=== PATIENT | male | born 1940 | race Caucasian/White ===

== ENCOUNTER 2017-10-10 09:15 | Outpatient (CLI) | payer MEDICARE ==
[~2017-10-10 09:15] MED LIST: Gadobenate Dimeglumine 529 MG/1 ML (20ML VIAL) ONE
--- NOTE | 2017-10-10 11:04 | MRI ---
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 COMPARISON: None. TECHNIQUE: Brain MRI is performed without intravenous and with intravenous Gadolinium administration. Multiseque ntial, multiplanar imaging is performed. FINDINGS: No hemorrhage on the axial gradient echo sequence. Calvarium has a normal marrow signal intensity. Mi dline brain parenchymal structures are unremarkable. No parenchymal mass, mass effect, or midline michelle ft. Age-appropriate atrophy. Cortical magana-white matter differentiation is preserved. There are T2 an d FLAIR white matter hyperintensities, minimal. Distribution favors chronic small vessel ischemic devin nges. Central arterial flow-voids are maintained. Absent restricted diffusion. Adequate aeration of t he sinuses and mastoid air cells. No pathologic enhancement of the brain parenchyma. IMPRESSION: 1. Absent restricted diffusion. No acute infarction. 2. Age-appropriate atrophy. Cortical magana-white matter differentiation is preserved. 3. Minimal chronic small vessel ischemic changes of white matter. POS: [facility] [place]
== END 2017-10-10 09:16 | disposition home or self-care (01) ==
LOC: SCSMRI 09:15
PROVIDERS: ATTEND Psychiatry & Neurology Neurology
DX: G31.1 Senile degeneration of brain, not elsewhere classified (principal); G31.9 Degenerative disease of nervous system, unspecified
CPT/HCPCS: 70553

== ENCOUNTER 2018-04-23 11:54 | Outpatient (CLI) | payer MEDICARE ==
--- NOTE | 2018-04-23 15:36 | PET ---
PET SCAN DEMENTIA PET BRAIN NONCONTRAST HEAD CT: INDICATION: Senile degeneration of the brain. RADIOPHARMACEUTICAL: 8.5 mCi fluorine 18-FDG IV. FINDINGS: There is symmetric mild reduced metabolic activity of each parietal lobe. Noncontrast head CT reveals mild parenchymal atrophy with compensatory dilatation of the ventricular system. No acute mass effect or midline shift. IMPRESSION: 1. Mild decreased metabolic activity of each parietal lobe. 2. Parenchymal atrophy with mild compensatory dilatation of the ventricular system. POS: [facility]
== END 2018-04-23 11:55 | disposition home or self-care (01) ==
LOC: PET 11:54
PROVIDERS: ATTEND Psychiatry & Neurology Neurology
DX: G31.1 Senile degeneration of brain, not elsewhere classified (principal); G31.9 Degenerative disease of nervous system, unspecified; G31.89 Other specified degenerative diseases of nervous system
CPT/HCPCS: 78608; A9552